=== PATIENT | female | born 1980 | race Native Hawaiian/Other Pacific Islander ===

== ENCOUNTER 2017-12-23 09:57 | Emergency (ER) | payer MEDICAID ==
[~2017-12-23] VITALS: Ht 175.3 cm; Wt 141.1 kg
[2017-12-23] MEDS ORDERED: HYDROcodone-ACET 5/325MG TAB PO ONE (11:15)
[2017-12-23] MEDS ORDERED: KETOROLAC TROMETH 60MG/2ML VIAL IM ONE (11:15)
[2017-12-23 11:32] LABS: Basophils # (auto) 0.1 uL; Basophils % (auto) 0.7 % (0.0-2.0); Eosinophils # (auto) 0.2 uL; Eosinophils % (auto) 2.1 % (0.0-7.0); Hematocrit 41.3 % (36.0-46.0); Lymphocytes # (auto) 2.9 uL; Lymphocytes % (auto) 31.7 % (10.0-50.0); Mean Corpuscular Hemoglobin 30.8 pg (28.0-32.0); Mean Corpuscular Volume 90.7 fL (80.0-100.0); Monocytes # (auto) 0.5 uL; Monocytes % (auto) 5.5 % (0.0-12.0); Neutrophils # (auto) 5.4 uL; Nucleated Red Blood Cells % 0.1 %; Platelet Count (auto) 296 10^3/uL (140-450); Red Blood Cells 4.55 10^6/uL (4.0-5.20); Red Cell Distribution Width 13.2 % (11.8-14.3); White Blood Cell 9.1 10^3/uL (4.4-10.8)
[2017-12-23 11:46] LABS: INR 1.01 (0.9-1.15); Partial Thromboplastin Time 32.5 sec (22.64-33.71)
[2017-12-23 11:51] LABS: Albumin 3.2 g/dL (3.4-5.0); BUN/Creatinine Ratio 9.9; Bilirubin, Total 0.5 mg/dL (0.2-1.0); Calcium 8.7 mg/dL (8.5-10.1); Total Protein 8.1 g/dL (6.4-8.2)
[2017-12-23 12:14] LABS: Urine Bacteria FEW /hpf (None Seen); Urine Blood Negative /uL (Negative); Urine Mucus FEW (None Seen); Urine Specific Gravity 1.023 (1.001-1.035); Urine WBC 7 /hpf (0 - 5)
[2017-12-23 13:00] VITALS: BP 109/61
== END 2017-12-23 14:38 | disposition home or self-care (01) ==
LOC: ER 09:57
DX: N39.0 Urinary tract infection, site not specified (principal); E66.01 Morbid (severe) obesity due to excess calories; Z68.42 Body mass index [BMI] 45.0-49.9, adult
CPT/HCPCS: 36415; 71046; 72100; 80053; 81001; 84484; 84702; 85025; 85610; 85730; 93005; 96372; 99285; J1885

== ENCOUNTER 2022-04-11 08:43 | Observation (INO) | payer MEDICAID ==
[2022-04-25] MEDS ORDERED: PREN-96 PO (12:11)
== END 2022-05-12 10:02 | disposition home or self-care (01) ==
LOC: UNDOADMOB 08:43 → LDRP 08:43 → UNDOADMOB 05-12 08:57 → LDRP 05-12 08:57 → UNDODISOB 05-12 10:02
PROVIDERS: ADMIT Obstetrics & Gynecology; ATTEND Obstetrics & Gynecology
DX: O26.893 Other specified pregnancy related conditions, third trimester (principal); I31.3 Pericardial effusion (noninflammatory); Z3A.38 38 weeks gestation of pregnancy
CPT/HCPCS: 59025; 76818; 81002; G0378

== ENCOUNTER 2022-04-19 06:42 | Observation (INO) | payer MEDICAID | END 2022-04-19 09:52 | disposition still patient (30) | LOC: UNDOADMOB 08:11 → LDRP 08:11 → UNDODISOB 09:52 | PROVIDERS: ADMIT Obstetrics & Gynecology; ATTEND Obstetrics & Gynecology | DX: O09.523 Supervision of elderly multigravida, third trimester (principal); O26.893 Other specified pregnancy related conditions, third trimester; I31.3 Pericardial effusion (noninflammatory); Z3A.35 35 weeks gestation of pregnancy | CPT/HCPCS: 59025; 76818; 81002; G0378 ==

== ENCOUNTER 2022-04-25 08:07 | Observation (INO) | payer MEDICAID ==
[2022-04-25] MEDS ORDERED: PREN-96 PO (12:11)
== END 2022-04-25 12:20 | disposition home or self-care (01) ==
LOC: LDRP 09:56
PROVIDERS: ADMIT Obstetrics & Gynecology; ATTEND Obstetrics & Gynecology
DX: O26.893 Other specified pregnancy related conditions, third trimester (principal); I31.3 Pericardial effusion (noninflammatory); O09.523 Supervision of elderly multigravida, third trimester; Z3A.36 36 weeks gestation of pregnancy
CPT/HCPCS: 59025; 76818; 81002; 94760; G0378

== ENCOUNTER 2022-04-28 08:19 | Observation (INO) | payer MEDICAID ==
[~2022-04-28 08:19] MED LIST: PREN-96 PO
== END 2022-04-28 10:17 | disposition still patient (30) ==
LOC: UNDOADMOB 08:19 → LDRP 08:19
PROVIDERS: ADMIT Obstetrics & Gynecology; ATTEND Obstetrics & Gynecology
DX: O99.413 Diseases of the circulatory system complicating pregnancy, third trimester (principal); I31.3 Pericardial effusion (noninflammatory); Z3A.36 36 weeks gestation of pregnancy; Z87.891 Personal history of nicotine dependence
CPT/HCPCS: 59025; 76818; 81002; G0378

== ENCOUNTER 2022-05-02 07:18 | Observation (INO) | payer MEDICAID ==
[~2022-05-02] VITALS: Ht 170.2 cm; Wt 129.3 kg
== END 2022-05-02 10:26 | disposition home or self-care (01) ==
LOC: UNDOADMOB 08:56 → LDRP 08:56
PROVIDERS: ADMIT Obstetrics & Gynecology; ATTEND Obstetrics & Gynecology
DX: O99.413 Diseases of the circulatory system complicating pregnancy, third trimester (principal); I31.3 Pericardial effusion (noninflammatory); O09.523 Supervision of elderly multigravida, third trimester; Z3A.37 37 weeks gestation of pregnancy; Z87.891 Personal history of nicotine dependence
CPT/HCPCS: 59025; 76818; 81002; 94760; G0378

== ENCOUNTER 2022-05-05 08:45 | Observation (INO) | payer MEDICAID | END 2022-05-05 10:17 | disposition home or self-care (01) | LOC: LDRP 08:45 → UNDOADMOB 08:50 → UNDODISOB 10:17 | PROVIDERS: ADMIT Obstetrics & Gynecology; ATTEND Obstetrics & Gynecology | DX: O26.893 Other specified pregnancy related conditions, third trimester (principal); I31.3 Pericardial effusion (noninflammatory); O09.523 Supervision of elderly multigravida, third trimester; Z3A.37 37 weeks gestation of pregnancy | CPT/HCPCS: 59025; 76818; 81002; 94760; G0378 ==

== ENCOUNTER 2022-05-09 08:09 | Observation (INO) | payer MEDICAID ==
[~2022-05-09] VITALS: Ht 170.2 cm; Wt 130.6 kg
== END 2022-05-09 10:45 | disposition home or self-care (01) ==
LOC: UNDOADMOB 09:28 → LDRP 09:28 → UNDODISOB 10:45
PROVIDERS: ADMIT Obstetrics & Gynecology; ATTEND Obstetrics & Gynecology
DX: O26.893 Other specified pregnancy related conditions, third trimester (principal); I31.3 Pericardial effusion (noninflammatory); O09.523 Supervision of elderly multigravida, third trimester; O62.9 Abnormality of forces of labor, unspecified; Z3A.38 38 weeks gestation of pregnancy
CPT/HCPCS: 59025; 76818; 81002; 94760; G0378

== ENCOUNTER 2022-05-16 07:22 | Observation (INO) | payer MEDICAID | END 2022-05-16 11:25 | disposition home or self-care (01) | LOC: LDRP 09:17 | PROVIDERS: ADMIT Obstetrics & Gynecology; ATTEND Obstetrics & Gynecology | DX: O35.8XX0 Maternal care for other (suspected) fetal abnormality and damage, not applicable or unspecified (principal); I31.3 Pericardial effusion (noninflammatory); O09.523 Supervision of elderly multigravida, third trimester; Z3A.39 39 weeks gestation of pregnancy; Z87.891 Personal history of nicotine dependence | CPT/HCPCS: 59025; 81002; G0378; 76818 ==

== ENCOUNTER 2022-05-16 22:51 | Observation (INO) | payer MEDICAID ==
[~2022-05-16] VITALS: Ht 170.2 cm; Wt 129.3 kg
== END 2022-05-17 01:01 | disposition home or self-care (01) ==
LOC: LDRP 22:51
PROVIDERS: ADMIT Obstetrics & Gynecology; ATTEND Obstetrics & Gynecology
DX: O26.893 Other specified pregnancy related conditions, third trimester (principal); R10.9 Unspecified abdominal pain; Z3A.39 39 weeks gestation of pregnancy; Z87.891 Personal history of nicotine dependence
CPT/HCPCS: 59025; 81002; 94760; G0378

== ENCOUNTER 2022-05-17 02:36 | Inpatient (IN) | payer MEDICAID ==
[~2022-05-17] VITALS: Ht 170.2 cm; Wt 129.3 kg
[2022-05-17] MEDS ORDERED: OXYTOCIN 10UNIT/ML 1ML VIAL ONE (02:48)
[2022-05-17] MEDS ORDERED: OXYTOCIN 10UNIT/ML 1ML VIAL IM ONE (02:53)
[2022-05-17] MEDS ORDERED: PHISODERM TOP SOLN 240ML BTL TOP PRN (03:45)
[2022-05-17] MEDS ORDERED: LACTATED RINGER'S 1,000 ML IV SCH (03:45)
[2022-05-17] MEDS ORDERED: DERMOPLAST 60ML BOTTLE TOP PRN (03:45)
[2022-05-17] MEDS ORDERED: WITCH HAZEL-GLYCERIN PAD TOP PRN (03:45)
[2022-05-17] MEDS ORDERED: IBUPROFEN 600 MG TAB PO PRN (04:00)
[2022-05-17] MEDS ORDERED: ONDANSETRON ODT 4 MG TAB PO PRN (04:00)
[2022-05-17] MEDS ORDERED: METHYLERGONOVINE MALEATE 0.2 MG/ML AMP IM ONE (04:00)
[2022-05-17] MEDS ORDERED: ACETAMINOPHEN 325 MG TAB PO PRN (04:00)
[2022-05-17 04:18] LABS: Basophils # (auto) 0 10 ^3/uL (0-0.2); Basophils % (auto) 0.1 % (0.0-2.0); Eosinophils # (auto) 0 10 ^3/uL (0-0.8); Eosinophils % (auto) 0.3 % (0.0-7.0); Hematocrit 38.6 % (36.0-46.0); Hemoglobin 12.9 g/dL (12.2-16.2); Lymphocytes # (auto) 1.2 10 ^3/uL (0.4-5.4); Lymphocytes % (auto) 9.5 % (10.0-50.0); Mean Corpuscular Hemoglobin 30.5 pg (28.0-32.0); Mean Corpuscular Hgb Conc. 33.4 g/dL (32.0-36.0); Mean Corpuscular Volume 91.2 fL (80.0-100.0); Monocytes # (auto) 0.5 10 ^3/uL (0-1.3); Monocytes % (auto) 3.7 % (0.0-12.0); Neutrophils % (auto) 86.4 % (37.0-80.0); Nucleated Red Blood Cells % 0.1 %; Red Blood Cells 4.23 10^6/uL (4.0-5.20); Red Cell Distribution Width 14.5 % (11.8-14.3); White Blood Cell 12.7 10^3/uL (4.4-10.8)
[2022-05-17 04:33] LABS: INR 0.99 (0.9-1.15); Partial Thromboplastin Time 29.9 sec (24.6-33.4)
[2022-05-17 04:36] LABS: Albumin 2.4 g/dL (3.4-5.0); Calcium 8.1 mg/dL (8.5-10.1); Potassium 3.6 mmol/L (3.5-5.1)
[2022-05-17 04:39] LABS: BUN/Creatinine Ratio 9.5; Bilirubin, Total 0.5 mg/dL (0.2-1.0); Total Protein 6.2 g/dL (6.4-8.2)
[2022-05-17 07:00] VITALS: BP 93/55
[2022-05-17 09:13] LABS: Urine Bacteria FEW /hpf (None Seen); Urine Blood 3+ /uL (Negative); Urine Mucus FEW (None Seen); Urine WBC 990 /hpf (0 - 5); Urine WBC Clumps PRESENT /hpf (None Seen)
[2022-05-17 09:38] LABS: Alcohol, Urine < 3.0 mg/dL (0-10); Amphetamine Screen, Urine NEGATIVE (NEGATIVE); Barbiturate Scree,Urine NEGATIVE (NEGATIVE); Benzodiazephine Screen, Urine NEGATIVE (NEGATIVE); Cannabinoid Screen, Urine NEGATIVE (NEGATIVE); Cocaine Screen, Urine NEGATIVE (NEGATIVE); Opiate Scree,Urine NEGATIVE (NEGATIVE); Phencyclidine Screen, Urine NEGATIVE (NEGATIVE)
[2022-05-17 09:46] LABS: Urine Specific Gravity 1.023 (1.001-1.035)
[2022-05-17 11:00] VITALS: BP 100/58
[2022-05-17 15:00] VITALS: BP 112/58
[2022-05-17 19:05] VITALS: BP 105/62
[2022-05-17 23:10] VITALS: BP 100/57
[2022-05-18 03:15] VITALS: BP 82/52
[2022-05-18 07:30] VITALS: BP 114/65
[2022-05-18 11:00] VITALS: BP 95/63
[2022-05-18 11:30] VITALS: BP 95/63
[2022-05-20 07:06] LABS: RPR Non Reactive (Non Reactive)
== END 2022-05-18 11:30 | disposition home or self-care (01) | DRG 560 ==
LOC: LDRP 02:36 → OBSVTOIN 02:37 → LDRP 04:11
PROVIDERS: ADMIT Obstetrics & Gynecology; ATTEND Obstetrics & Gynecology
PROC: 10E0XZZ Delivery of Products of Conception, External Approach (ICD-10-PCS; principal; 2022-05-17)
DX: O80 Encounter for full-term uncomplicated delivery (principal); Z37.0 Single live birth; Z20.822 Contact with and (suspected) exposure to COVID-19; Z3A.39 39 weeks gestation of pregnancy
CPT/HCPCS: 36415; 59025; 59409; 80053; 80307; 81001; 85025; 85610; 85730; 86592; 86850; 86900; 86901; 94760; 96372; G0378